=== PATIENT | female | born 2000 | race Caucasian/White ===

== ENCOUNTER 2020-07-30 18:56 | Observation (INO) ==
[2020-07-30] MEDS ORDERED: Magnesium Sulfate 2 gm BAG 2 GM/50 ML BAG IVPB ONE (19:31)
[2020-07-30] MEDS ORDERED: methylPREDNISolone 125 mg 2 ML VIAL IV ONE (19:31)
[2020-07-30] MEDS ORDERED: methylPREDNISolone SOD 40 mg/ml 1 ml VIAL IV ONE (19:32)
[2020-07-30] MEDS ORDERED: Albuterol/Ipratropium NEB.SOL (2.5/0.5 MG) 3 ML NEB.SOLN INH ONE ×3 (19:33→22:07)
[2020-07-30] MEDS ORDERED: Albuterol HFA INHALER 8 gm MDI INH ONE (19:46)
[2020-07-30 20:31] LABS: Hematocrit 44 % (35-47); Hemoglobin 15.1 g/dL (12.0-16.0); Mean Corpuscular HGB Conc 35 g/dL (31-36); Mean Corpuscular Hemoglobin 28 pg (27-31); Mean Corpuscular Volume 80 fL (80-97); Mean Platelet Volume 7.7 fL (7.4-10.4); Platelet Count 363 10^3/uL (150-450); Red Blood Count 5.47 10^6 /uL (3.70-4.87); Red Cell Distribution Width 13 % (10-15); White Blood Count 9.2 10^3/uL (3.5-10.8)
[2020-07-30 20:50] LABS: Albumin 4.5 g/dL (3.2-5.2); Albumin/Globulin Ratio 1.6 (1-3); C Reactive Protein 3.01 mg/L (<8.01); Calcium 9.7 mg/dL (8.6-10.3); EGFR African American 93.2 (>60); EGFR Non-African American 77.1 (>60); Globulin 2.9 g/dL (2-4); Potassium 3.9 mmol/L (3.5-5.0); Total Bilirubin 0.5 mg/dL (0.2-1.0); Total Protein 7.4 g/dL (6.4-8.9); Troponin I 0.01 ng/mL (<0.03)
[2020-07-30 20:52] LABS: ABS Basophils 0.1 10^3/ul (0-0.2); ABS Eosinophils 2.9 10^3/ul (0-0.6); ABS Lymphocytes 1.4 10^3/ul (1.0-4.8); ABS Monocytes 0.4 10^3/ul (0-0.8); ABS Neutrophils 4.4 10^3/ul (1.5-7.7); Eosinophil % 31.3 %; Lymphocyte % 15.2 %; Nucleated Red Blood Cells % 0.1
[2020-07-30 20:54] LABS: HCG Pregnancy 5.43 mIU/mL
[2020-07-31] MEDS ORDERED: Ondansetron 4 mg VIAL 2 MG/ML 2 ml VIAL IV PRN (00:11)
[2020-07-31] MEDS ORDERED: NS 0.9% 1000 ml BAG 1,000 ML IV SCH (00:15)
[2020-07-31] MEDS ORDERED: Albuterol/Ipratropium NEB.SOL (2.5/0.5 MG) 3 ML NEB.SOLN INH PRN (00:20)
[2020-07-31] MEDS: Albuterol 2.5mg/3 ml (0.083%) NEB.SOLN INH SCH ×4 (03:10→15:06)
[2020-07-31] MEDS ORDERED: Mometasone/Formoter 200/5 MDI INH SCH (09:00)
[2020-07-31] MEDS ORDERED: Umeclidinium 62.5 MDI(NF) MDI INH SCH (09:00)
[2020-07-31 09:20] LABS: ABS Lymphocytes 1.6 10^3/ul (1.0-4.8); ABS Monocytes 0.9 10^3/ul (0-0.8); ABS Neutrophils 6.4 10^3/ul (1.5-7.7); Eosinophil % 0.2 %; Hematocrit 42 % (35-47); Hemoglobin 14.4 g/dL (12.0-16.0); Lymphocyte % 17.6 %; Mean Corpuscular HGB Conc 34 g/dL (31-36); Mean Corpuscular Hemoglobin 27 pg (27-31); Mean Corpuscular Volume 80 fL (80-97); Mean Platelet Volume 7.9 fL (7.4-10.4); Platelet Count 375 10^3/uL (150-450); Red Blood Count 5.25 10^6 /uL (3.70-4.87); Red Cell Distribution Width 13 % (10-15); White Blood Count 8.9 10^3/uL (3.5-10.8)
[2020-07-31 09:42] LABS: Calcium 9.4 mg/dL (8.6-10.3); EGFR Non-African American 97.5 (>60); Potassium 3.6 mmol/L (3.5-5.0)
[2020-07-31 16:26] VITALS: BP 141/65
== END 2020-07-31 17:20 | disposition home or self-care (01) ==
LOC: ED 18:56 → MED 18:56
PROVIDERS: ADMIT Student in an Organized Health Care Education/Training Program; ATTEND Internal Medicine

== ENCOUNTER 2022-11-05 10:53 | Inpatient (IN) ==
[2022-11-05 12:55] LABS: Urine Appearance Clear; Urine Bilirubin Negative (Negative); Urine Blood Negative (Negative); Urine Color Yellow; Urine Glucose Negative (Negative); Urine Ketones 1+ (Negative); Urine Nitrite Negative (Negative); Urine Protein Negative (Negative); Urine Specific Gravity 1.031 (1.002-1.030); Urine Urobilinogen Negative (Negative)
[2022-11-05] MEDS ORDERED: NS 0.9% 1000 ml BAG 1,000 ML IV ONE (17:36)
[2022-11-05] MEDS ORDERED: Ondansetron 4 mg VIAL 2 MG/ML 2 ml VIAL IV PRN (19:19)
[2022-11-05] MEDS ORDERED: Enoxaparin 40 MG/0.4 ML SYR SUBCUT SCH (20:00)
[2022-11-05 20:12] LABS: C Reactive Protein 12.99 mg/L (<8.01)
[2022-11-05] MEDS ORDERED: Albuterol HFA INHALER 8 gm MDI INH PRN (23:06)
[2022-11-05] MEDS ORDERED: Albuterol 2.5mg/3 ml (0.083%) NEB.SOLN INH PRN (23:06)
[2022-11-05] MEDS ORDERED: Magnesium Sulfate 2 gm BAG 2 GM/50 ML BAG IVPB ONE (23:45)
[2022-11-06] MEDS: Mometasone/Formoter 200/5 MDI INH SCH ×4 (00:07→20:05)
[2022-11-06 01:23] LABS: Urine Benzodiazepine Screen None Detected (None Detect); Urine Cannabinoids Screen Presumptive Positive (None Detect); Urine Opiates Screen None Detected (None Detect)
[2022-11-06 05:03] LABS: Hematocrit 38.7 % (35-45); Hemoglobin 13.5 g/dL (11.5-14.3); Mean Corpuscular Hemoglobin 27.1 pg (27-33); Mean Corpuscular Hgb Conc 34.7 g/dL (31-36); Mean Corpuscular Volume 78.1 fL (80-97); Mean Platelet Volume 7.5 fL (7.5-11.2); Platelet Count 181 10^3/uL (150-450); Red Blood Count 4.96 10^6/uL (3.63-4.92); Red Cell Distribution Width 13.2 % (12-17); White Blood Count 12.7 10^3/uL (3.8-11.8)
[2022-11-06 05:13] LABS: ABS Basophils 0.1 10^3/uL (0.0-0.1); ABS Eosinophils 2.8 10^3/uL (0.0-0.5); ABS Lymphocytes 2.9 10^3/uL (1.0-4.8); ABS Monocytes 0.8 10^3/uL (0.0-0.9); ABS Neutrophils 6.1 10^3/uL (1.5-7.6); ABS Nucleated RBC 0.02 10^3/ul; Eosinophil % 21.7 %; Lymphocyte % 23.1 %; Nucleated Red Blood Cells % 0.2 /100 WBC (0.0-0.4)
[2022-11-06 05:37] LABS: Albumin 3.8 g/dL (3.2-5.2); Calcium 8.6 mg/dL (8.6-10.3); Magnesium 2.5 mg/dL (1.9-2.7); Potassium 4.3 mmol/L (3.5-5.0); Total Bilirubin 0.5 mg/dL (0.2-1.0)
[2022-11-06 05:43] LABS: Albumin/Globulin Ratio 1.6 (1-3); Creatinine, Serum 1.01 mg/dL (0.51-0.95); Globulin 2.4 g/dL (2-4); Total Protein 6.2 g/dL (6.4-8.9); eGFR CKD-EPI 80.2 (>60)
[2022-11-06] MEDS: Enoxaparin 40 MG/0.4 ML SYR SUBCUT SCH (06:06)
[2022-11-06 06:22] LABS: INR 1.2 (0.88-1.18)
[2022-11-06 08:06] LABS: HDL Cholesterol 33.4 mg/dL
[2022-11-06] MEDS ORDERED: Iohexol 350 (CONTRAST) 500 ML MDV IV ONE (10:38)
[2022-11-06 13:32] LABS: High Sensitivity Troponin 1 Hr 2917 pg/mL (<15)
[2022-11-06 18:40] LABS: High Sensitivity Troponin 3 Hr 2736 pg/mL (<15)
[2022-11-07] MEDS: Mometasone/Formoter 200/5 MDI INH SCH ×2 (05:59→19:14)
[2022-11-07] MEDS: Enoxaparin 40 MG/0.4 ML SYR SUBCUT SCH (06:25)
[2022-11-07 07:17] LABS: Hematocrit 39.5 % (35-45); Hemoglobin 13.6 g/dL (11.5-14.3); Mean Corpuscular Hemoglobin 27.7 pg (27-33); Mean Corpuscular Hgb Conc 34.5 g/dL (31-36); Mean Corpuscular Volume 80.2 fL (80-97); Mean Platelet Volume 7.4 fL (7.5-11.2); Platelet Count 169 10^3/uL (150-450); Red Blood Count 4.92 10^6/uL (3.63-4.92); Red Cell Distribution Width 13.3 % (12-17); White Blood Count 10.6 10^3/uL (3.8-11.8)
[2022-11-07 07:34] LABS: Calcium 8.8 mg/dL (8.6-10.3); Creatinine, Serum 0.92 mg/dL (0.51-0.95); Magnesium 1.9 mg/dL (1.9-2.7); Potassium 4.1 mmol/L (3.5-5.0); eGFR CKD-EPI 89.7 (>60)
[2022-11-07 07:54] LABS: ABS Basophils 0.1 10^3/uL (0.0-0.1); ABS Eosinophils 3.2 10^3/uL (0.0-0.5); ABS Lymphocytes 2.8 10^3/uL (1.0-4.8); ABS Monocytes 0.6 10^3/uL (0.0-0.9); ABS Nucleated RBC 0.02 10^3/ul; Lymphocyte % 26.4 %; Nucleated Red Blood Cells % 0.2 /100 WBC (0.0-0.4)
[2022-11-07 13:59] LABS: Immunoglobulin A 207 mg/dL (61 - 356); Immunoglobulin G 1060 mg/dL (767 - 1590); Immunoglobulin M 182 mg/dL (37 - 286)
[2022-11-07] MEDS: Fluticasone NASAL SPRAY 50MCG 16 gm SPRAY BTL BOTH NARES SCH (14:41)
[2022-11-07 15:52] LABS: DRVVT Screen Ratio 1.39 ratio (<1.20); LAC APTT 30 sec (25 - 37); LAC INR 1.2 (0.9-1.1); Prothrombin Time(LAC) 13.4 sec (9.4 - 12.5)
[2022-11-07 16:00] LABS: Complement C3 128 mg/dL (75 - 175)
[2022-11-07 16:10] LABS: Thrombin Time (Bovine), P 20.8 sec
[2022-11-08 05:49] LABS: Hematocrit 37.8 % (35-45); Hemoglobin 13.1 g/dL (11.5-14.3); Mean Corpuscular Hemoglobin 27.3 pg (27-33); Mean Corpuscular Hgb Conc 34.6 g/dL (31-36); Mean Corpuscular Volume 78.9 fL (80-97); Mean Platelet Volume 7.9 fL (7.5-11.2); Platelet Count 173 10^3/uL (150-450); Red Blood Count 4.79 10^6/uL (3.63-4.92); White Blood Count 11.1 10^3/uL (3.8-11.8)
[2022-11-08 06:03] LABS: Anion Gap 7 mmol/L (2-16); Blood Urea Nitrogen 20 mg/dL (6-24); CO2 Carbon Dioxide 24 mmol/L (22-32); Calcium 9.1 mg/dL (8.6-10.3); Chloride 106 mmol/L (101-111); Creatinine, Serum 0.95 mg/dL (0.51-0.95); Glucose 92 mg/dL (70-100); Magnesium 1.9 mg/dL (1.9-2.7); Potassium 4.5 mmol/L (3.5-5.0); Sodium 137 mmol/L (135-145); eGFR CKD-EPI 86.3 (>60)
[2022-11-08 06:07] LABS: ABS Basophils 0.1 10^3/uL (0.0-0.1); ABS Eosinophils 3.1 10^3/uL (0.0-0.5); ABS Lymphocytes 3.4 10^3/uL (1.0-4.8); ABS Monocytes 0.7 10^3/uL (0.0-0.9); ABS Neutrophils 3.8 10^3/uL (1.5-7.6); ABS Nucleated RBC 0.02 10^3/ul; Eosinophil % 28.3 %; Nucleated Red Blood Cells % 0.2 /100 WBC (0.0-0.4)
[2022-11-08] MEDS ORDERED: NS 0.9% 1000 ml BAG 1,000 ML IV ONE (07:00)
[2022-11-08] MEDS: Mometasone/Formoter 200/5 MDI INH SCH ×2 (07:30→22:20)
[2022-11-08] MEDS ORDERED: fentaNYL 100 mcg/2 ml 50 MCG/ML VIAL ONE (09:40)
[2022-11-08] MEDS ORDERED: Flumazenil 0.5 mg/5 ml 0.1 MG/ML 5 ml VIAL ONE (09:40)
[2022-11-08] MEDS ORDERED: Midazolam 5 mg/5 ml VIAL 1 mg/ml 5 ml VIAL (5 mg) ONE (09:40)
[2022-11-08] MEDS ORDERED: Naloxone 0.4 mg VIAL 0.4 mg/ml 1 ml VIAL ONE (09:40)
[2022-11-08 10:27] LABS: ALT 14 U/L (7-52); AST 15 U/L (13-39); Albumin 3.7 g/dL (3.2-5.2); Albumin/Globulin Ratio 1.5 (1-3); Alkaline Phosphatase 68 U/L (35-149); Globulin 2.5 g/dL (2-4); Total Protein 6.2 g/dL (6.4-8.9)
[2022-11-08] MEDS ORDERED: Midazolam 10 mg/10 ml VIAL 1 mg/ml 10 ml VIAL (10 mg) IV SLOW PU ONE (12:22)
[2022-11-08] MEDS ORDERED: fentaNYL 100 mcg/2 ml 50 MCG/ML VIAL IV SLOW PU ONE (12:22)
[2022-11-08 12:43] LABS: Cryoglobulin Negative %ppt (Negative)
[2022-11-08 12:45] LABS: RNP IgG Antibodies <0.2 U; SS-A/Ro Antibody <0.2 U; SS-B/La Antibody <0.2 U
[2022-11-08] MEDS: Fluticasone NASAL SPRAY 50MCG 16 gm SPRAY BTL BOTH NARES SCH ×2 (14:32→14:43)
[2022-11-08 15:20] LABS: Body Fluid Source Cerebral Spinal
[2022-11-08 15:39] LABS: CSF Glucose 54 mg/dL (40-70)
[2022-11-08 16:29] LABS: Phospholipid Ab IgG < 9.4 GPL
[2022-11-08 16:59] LABS: Body Fluid Appearance Clear
[2022-11-08 17:00] LABS: Body Fluid Color Colorless
[2022-11-08 17:14] LABS: Body Fluid WBC 2 /mcL; CSF Tube # 4
[2022-11-08 17:35] LABS: Anaplasma phagocytophilum Negative (Negative); B. miyamotoi PCR, B Negative (Negative); Babesia divergens/MO-1 Negative (Negative); Babesia ducani Negative (Negative); Ehrlichia chaffeensis Negative (Negative); Ehrlichia ewingii/canis Negative (Negative); Ehrlichia muris eauclairensis Negative (Negative)
[2022-11-08 19:45] LABS: Beta 2 Glycoprotein IgG <9.4 SGU
[2022-11-08] MEDS ORDERED: Enoxaparin 40 MG/0.4 ML SYR SUBCUT SCH (21:00)
[2022-11-09 06:22] LABS: ABS Eosinophils 0.1 10^3/uL (0.0-0.5); ABS Monocytes 0.8 10^3/uL (0.0-0.9); ABS Neutrophils 6.8 10^3/uL (1.5-7.6); ABS Nucleated RBC 0.01 10^3/ul; Eosinophil % 1.3 %; Hematocrit 37.2 % (35-45); Hemoglobin 12.7 g/dL (11.5-14.3); Lymphocyte % 20.9 %; Mean Corpuscular Hemoglobin 27.4 pg (27-33); Mean Corpuscular Hgb Conc 34.2 g/dL (31-36); Mean Corpuscular Volume 80.1 fL (80-97); Mean Platelet Volume 8.1 fL (7.5-11.2); Nucleated Red Blood Cells % 0.1 /100 WBC (0.0-0.4); Platelet Count 212 10^3/uL (150-450); Red Blood Count 4.65 10^6/uL (3.63-4.92); Red Cell Distribution Width 12.9 % (12-17); White Blood Count 9.7 10^3/uL (3.8-11.8)
[2022-11-09 06:40] LABS: Calcium 9.2 mg/dL (8.6-10.3); Creatinine, Serum 0.8 mg/dL (0.51-0.95); Magnesium 1.8 mg/dL (1.9-2.7); Potassium 4.2 mmol/L (3.5-5.0); eGFR CKD-EPI 106.1 (>60)
[2022-11-09] MEDS: Mometasone/Formoter 200/5 MDI INH SCH (07:10)
[2022-11-09] MEDS ORDERED: Magnesium Sulfate 2 gm BAG 2 GM/50 ML BAG IVPB ONE (07:20)
[2022-11-09 07:25] LABS: HIV 4th Generation Nonreactive (Nonreactive)
[2022-11-09] MEDS: Fluticasone NASAL SPRAY 50MCG 16 gm SPRAY BTL BOTH NARES SCH (07:43)
[2022-11-09 12:29] VITALS: BP 130/78
[2022-11-11 13:37] LABS: HSV 1 PCR, CSF Negative (Negative); HSV 2 PCR, CSF Negative (Negative)
[2022-11-12 16:42] LABS: B. burgdorferi PCR Negative (Negative); B. garinii/B. afzellii PCR Negative (Negative); Lyme Disease Source CSF
== END 2022-11-09 12:30 | disposition home or self-care (01) | DRG 65 ==
LOC: ED 10:53 → EDHOLD 19:11 → SUATTDRO 19:11 → EDHOLD 11-06 10:13 → MEDTELE 11-06 11:41
PROVIDERS: ADMIT Internal Medicine; ATTEND Internal Medicine